=== PATIENT | female | born 1945 | race Caucasian/White ===

== ENCOUNTER → 2022-06-10 13:30 | Outpatient (REF) | payer MEDICARE, OTHER, SELFPAY | LOC: CLAB 13:30 | PROVIDERS: ATTENDING PHYSICIAN Surgery | DX: C50.912 Malignant neoplasm of unspecified site of left female breast (principal) | CPT/HCPCS: 88305; 88307; 88341; 88342; 88360 ==

== ENCOUNTER → 2023-09-28 12:00 | Outpatient (REF) | payer MEDICARE, OTHER, SELFPAY | LOC: HWRAD 12:00 | PROVIDERS: ATTENDING PHYSICIAN Internal Medicine | DX: M79.651 Pain in right thigh (principal); M81.0 Age-related osteoporosis without current pathological fracture | CPT/HCPCS: 73552 ==

== ENCOUNTER → 2023-12-23 13:32 | Outpatient (REF) | payer MEDICARE, OTHER, SELFPAY | LOC: HWRAD 13:32 | PROVIDERS: ATTENDING PHYSICIAN Internal Medicine | DX: R93.89 Abnormal findings on diagnostic imaging of other specified body structures (principal) | CPT/HCPCS: 76856 ==

== ENCOUNTER → 2024-01-07 13:55 | Outpatient (REF) | payer MEDICARE, OTHER, SELFPAY | LOC: HWRAD 13:55 | PROVIDERS: ATTENDING PHYSICIAN Internal Medicine | DX: R06.02 Shortness of breath (principal); R55 Syncope and collapse; R42 Dizziness and giddiness | CPT/HCPCS: 71046 ==

== ENCOUNTER → 2024-01-11 15:11 | Outpatient (REF) | payer MEDICARE, OTHER, SELFPAY | LOC: HWRAD 15:11 | PROVIDERS: ATTENDING PHYSICIAN Internal Medicine | DX: R06.02 Shortness of breath (principal); R93.89 Abnormal findings on diagnostic imaging of other specified body structures | CPT/HCPCS: 71260; Q9967 ==

== ENCOUNTER → 2024-01-22 14:44 | Outpatient (REF) | payer MEDICARE, OTHER, SELFPAY | LOC: HWRCS 14:44 | PROVIDERS: ATTENDING PHYSICIAN Internal Medicine | DX: R06.02 Shortness of breath (principal); R42 Dizziness and giddiness; R55 Syncope and collapse | CPT/HCPCS: 93306 ==

== ENCOUNTER → 2024-03-17 15:54 | Outpatient (REF) | payer MEDICARE, OTHER, SELFPAY | LOC: HWRAD 15:54 | PROVIDERS: ATTENDING PHYSICIAN Nurse Practitioner Family | DX: M54.6 Pain in thoracic spine (principal); W19.XXXA Unspecified fall, initial encounter | CPT/HCPCS: 71111 ==

== ENCOUNTER → 2024-04-12 11:36 | Outpatient (REF) | payer MEDICARE, OTHER, SELFPAY | LOC: WDC 11:36 | PROVIDERS: ATTENDING PHYSICIAN Internal Medicine | DX: Z12.31 Encounter for screening mammogram for malignant neoplasm of breast (principal) | CPT/HCPCS: 77063; 77067 ==

== ENCOUNTER → 2024-07-05 09:54 | Outpatient (REF) | payer MEDICARE, OTHER, SELFPAY | LOC: HWRAD 09:54 | PROVIDERS: ATTENDING PHYSICIAN Internal Medicine | DX: M79.18 Myalgia, other site (principal); R07.81 Pleurodynia | CPT/HCPCS: 71100; 72202; 72220 ==

== ENCOUNTER → 2025-04-13 13:06 | Outpatient (REF) | payer MEDICARE, OTHER, SELFPAY | LOC: WDC 13:06 | PROVIDERS: ATTENDING PHYSICIAN Internal Medicine Hematology & Oncology; FAMILY PHYSICIAN Internal Medicine | DX: Z12.31 Encounter for screening mammogram for malignant neoplasm of breast (principal); Z85.3 Personal history of malignant neoplasm of breast; C50.412 Malignant neoplasm of upper-outer quadrant of left female breast | CPT/HCPCS: 77063; 77067 ==